=== PATIENT | male | born 2000 | race Caucasian/White ===

== ENCOUNTER 2022-10-02 23:15 | Emergency (ER) | payer OTHER ==
[~2022-10-02] VITALS: Ht 185.4 cm; Wt 172.0 kg
[2022-10-02 23:26] VITALS: BP 130/70
[2022-10-02] MEDS ORDERED: AMOX1TAB16 MT (23:58)
== END 2022-10-03 | disposition home or self-care (01) ==
LOC: ER 23:15
DX: J03.90 Acute tonsillitis, unspecified (principal); J02.9 Acute pharyngitis, unspecified
CPT/HCPCS: 99283